=== PATIENT | male | born 1965 | race Caucasian/White ===

== ENCOUNTER 2019-11-03 16:58 | Emergency (ER) | payer BC ==
[~2019-11-03] VITALS: Ht 188 cm; Wt 188.2 kg
[~2019-11-03 16:58] MED LIST: ALEVE220 MG PO; BYSTOLIC10 MG PO; DEPAKOTE250 MG PO; FLUOXETINE HCL20 MG PO; FUROSEMIDE40 MG PO; KEFLEX500 MG PO; LEVOTHYROX200 MCG/VI PO; LEVOTHYROXINE100 MCG PO; LEVOTHYROXINE50 MCG PO; METFORMIN HCL500 MG PO; METOPROLOL TART25 MG PO; NORCO 10MG-325MG1 EA PO; RISPERIDONE0.5 MG PO; ULTRAM 50MG50 MG PO
[2019-11-03] MEDS ORDERED: SODIUM CHLORIDE 0.9% 1000ML 1,000 ML IV STA (17:19)
--- NOTE | 2019-11-03 17:23 | Emergency Department Note ---
History of Present Illnes History of Present Illness Chief Complaint: Abdominal Complaints History of Present Illness This is a 54 year old male presents to the ED for evaluation of GI bleed for 4 weeks which were mild initially but yesterday had increased BRPRB with dizziness. . Onset (how long ago): week(s) Severity: moderate (EMANUEL KATHLEEN DO) Past Medical/Family History Physician Review I have reviewed the patient's past medical and family history. Any updates have been documented here. (EMANUEL KATHLEEN DO) Past Medical History Other Medical History: Broken collar bone. Cracked ribs. Broken wrist. Broken nose. Dislocated knee. pancreatitis sleep apnea pre-diabetic anxiety QUADRIECPT TENDONITIS (EMANUEL KATHLEEN DO) Social History Smoking Cessation: Current some day smoker Counseling Performed: Yes Alcohol Use: None Any Illegal Drug Use: No (KATHLEENEMANUEL GARVEY) Other Last Tetanus: OOD (EMANUEL KATHLEEN DO) Physical Exam Related Data Allergies: Coded Allergies: lamotrigine (Verified Adverse Reaction, Severe, SEVERE DROWISNESS, 01/27/17) quetiapine (Verified Adverse Reaction, Severe, SEVERE DROWISNESS, 01/27/17) Physical Exam CONSTITUTIONAL HENT EYES NECK PULMONARY CARDIOVASCULAR GASTROINTESTINAL GENITOURINARY SKIN MUSCULOSKELETAL NEUROLOGICAL PSYCHOLOGICAL (EMANUEL KATHLEEN DO) Results Laboratory Laboratory Laboratory Tests Test 11/03/19 17:54 White Blood Count 7.93 x10e3/uL (4.8-10.8) Red Blood Count 4.17 x10e6/uL (4.3-5.7) Hemoglobin 13.1 g/dL (14.0-18.0) Hematocrit 37.8 % (38.2-49.6) Mean Corpuscular Volume 90.6 fL (81-99) Mean Corpuscular Hemoglobin 31.4 pg (28-32) Mean Corpuscular Hemoglobin Concent 34.7 g/dL (31-35) Red Cell Distribution Width 12.4 % (11.7-14.4) Platelet Count 247 x10e3/uL (140-360) Neutrophils (%) (Auto) 56.2 % (38.7-80.0) Lymphocytes (%) (Auto) 30.8 % (18.0-39.1) Monocytes (%) (Auto) 8.7 % (4.4-11.3) Eosinophils (%) (Auto) 3.2 % (0.0-6.0) Basophils (%) (Auto) 0.8 % (0.0-1.0) Neutrophils # (Auto) 4.5 (2.1-6.9) Lymphocytes # (Auto) 2.4 (1.0-3.2) Monocytes # (Auto) 0.7 (0.2-0.8) Eosinophils # (Auto) 0.3 (0.0-0.4) Basophils # (Auto) 0.1 (0.0-0.1) Absolute Immature Granulocyte (auto 0.02 x10e3/uL (0-0.1) Prothrombin Time 12.2 seconds (11.9-14.5) Prothromb Time International Ratio 0.86 Sodium Level 131 mmol/L (136-145) Potassium Level 4.1 mmol/L (3.5-5.1) Chloride Level 95 mmol/L (98-107) Carbon Dioxide Level 24 mmol/L (22-29) Anion Gap 16.1 mmol/L (8-16) Blood Urea Nitrogen 12 mg/dL (7-26) Creatinine 1.35 mg/dL (0.72-1.25) Estimat Glomerular Filtration Rate 55 ML/MIN (60-) BUN/Creatinine Ratio 9 (6-25) Glucose Level 385 mg/dL (74-118) Calcium Level 9.4 mg/dL (8.4-10.2) Total Bilirubin 0.6 mg/dL (0.2-1.2) Aspartate Amino Transf (AST/SGOT) 26 IU/L (5-34) Alanine Aminotransferase (ALT/SGPT) 26 IU/L (0-55) Alkaline Phosphatase 82 IU/L (40-150) Creatine Kinase 647 IU/L (30-200) Creatine Kinase MB 6.70 ng/mL (0-5.0) Troponin I 0.005 ng/mL (0-0.300) Total Protein 7.5 g/dL (6.5-8.1) Albumin 4.8 g/dL (3.5-5.0) Globulin 2.7 g/dL (2.3-3.5) Albumin/Globulin Ratio 1.8 (0.8-2.0) Lipase 36 U/L (8-78) Lab results reviewed: Yes (JUAN LUIS CRISOSTOMO MD) Imaging Imaging results reviewed: Yes Impressions Procedure: [id number] CT/CTA ABD/PELVIS Exam Date: 11/03/19 Exam Time: 1830 REPORT STATUS: Signed EXAMINATION: CTA of the abdomen and pelvis with and without contrast. TECHNIQUE: Spiral CT images of the abdomen and pelvis were performed from the lung bases to the lesser trochanters before and after the intravenous administration of 100 cc of Isovue 370 and the oral administration of water. Precontrast, arterial and delayed axial images were obtained. Coronal and sagittal reformatted images were performed. COMPARISON: None. CLINICAL HISTORY:Lower GI bleed, bright red blood rectum. DISCUSSION: Exam limited by photon starvation secondary to patient's large body habitus ABDOMEN/PELVIS: LOWER THORAX:Minimal linear opacities in the lateral left lower lobe, likely reflect subsegmental atelectasis or scarring. Lung bases are otherwise clear. HEPATOBILIARY: Diffuse decreased attenuation of the hepatic parenchyma consistent with steatosis.. No intra or extrahepatic biliary ductal dilation. GALLBLADDER: No radio-opaque stones or sludge. No wall thickening. SPLEEN: No splenomegaly. PANCREAS: No focal masses or ductal dilatation. ADRENALS: No adrenal nodules. KIDNEYS/URETERS: No hydronephrosis, stones, or solid mass lesions. PELVIC ORGANS/BLADDER: Prostate are unremarkable. Pelvic phleboliths. PERITONEUM/RETROPERITONEUM: No free air or fluid. LYMPH NODES: No intra-abdominal,retroperitoneal, pelvic or inguinal lymphadenopathy. VESSELS: The celiac trunk,superior and inferior mesenteric and bilateral renal arteries are patent The portal, superior mesenteric and splenic veins are patent. Aorta is nonaneurysmal. No dissection is identified. Bilateral common, external and internal iliac arteries are patent. GI TRACT: No bowel dilation or evidence of obstruction. No pericolonic inflammatory changes. No wall thickening or focal intraluminal mass. Specifically, no intraluminal hyperdensity to suggest acute bleeding. No evidence of contrast extravasation in the bowel. No surrounding fat stranding/inflammatory changes in the distal sigmoid or rectum. BONES AND SOFT TISSUE: No aggressive lytic or suspicious focal sclerotic lesions. Multilevel degenerative discs in the lumbosacral spine, worse at L5-S1. Facet hypertrophy at L5-S1. This visualized soft tissues are grossly unremarkable. IMPRESSION: 1. No bowel dilation, obstruction, wall thickening or focal intraluminal mass. Specifically, no intraluminal hyperdensity to suggest acute bleeding in the distal bowel. No contrast extravasation. 2. Diffuse hepatic steatosis. Signed by: Dr. Zak Olivia M.D. on 11/03/2019 9:12 PM Dictated By: ZAK OLIVIA MD 11 Transcribed By: GISEL on 11/03/192111 COPY TO: EMANUEL KATHLEEN DO~ (JUAN LUIS CRISOSTOMO MD) Procedures 12 Lead ECG Interpretation ECG Interpretation : ECG: ECG 1 [employer]: Interpreted by ED physician Date: Nov 03, 2019 Time: 19:39 Rhythm: sinus rhythm Rate: normal BPM: 74 QRS axis: normal ST segments normal: Yes T waves normal: Yes Other findings: no other findings Clinical Impression: normal ECG (JUAN LUIS CRISOSTOMO MD) Assessment & Plan Medical Decision Making MDM I SPOKE WITH DR RICHMOND, DISCHARGE HOME, FOLLOW UP IN OFFICE (JUAN LUIS CRISOSTOMO MD) Reassessment Reassessment time: 21:27 Reassessment PT DOING WELL RECTAL EXAM REVEALS EXTERNAL AND INTERNAL HEMORRHOIDS (JUAN LUIS CRISOSTOMO MD) Assessment & Plan Final Impression: (1) Internal hemorrhoid, bleeding (JUAN LUIS CRISOSTOMO MD) Depart Disposition: HOME, SELF-assisted Meds Reported Medications Naproxen Sodium (ALEVE) 220 Mg Tablet, 200 MG PO TID 01/27/17 Furosemide (FUROSEMIDE) 40 Mg Tablet, 20 MG PO Daily, #30 TAB 01/27/17 Metformin Hcl (METFORMIN HCL) 500 Mg Tablet, 500 MG PO ACS, #60 TAB 01/27/17 Levothyroxine Sodium (LEVOTHYROXINE SODIUM) 100 Mcg Tablet, 200 MCG PO DAILY 06/22/14 Risperidone (RISPERIDONE) 0.5 Mg Tablet, 0.5 MG PO HS, TAB 06/22/14 Fluoxetine Hcl (FLUOXETINE HCL) 20 Mg Capsule, 40 MG PO DAILY, #30 CAP 06/22/14 Metoprolol Tartrate (METOPROLOL TARTRATE) 25 Mg Tablet, 25 MG PO BID, TAB 06/22/14 EMANUEL KATHLEEN DO Nov 03, 2019 17:23 JUAN LUIS CRISOSTOMO MD Nov 03, 2019 19:52
[2019-11-03 18:16] LABS: BASOPHILS # (AUTO) 0.1 (0.0-0.1); BASOPHILS % 0.8 % (0.0-1.0); EOSINOPHILS # (AUTO) 0.3 (0.0-0.4); EOSINOPHILS % 3.2 % (0.0-6.0); HEMATOCRIT 37.8 % (38.2-49.6); HEMOGLOBIN 13.1 g/dL (14.0-18.0); LYMPHOCYTES # (AUTO) 2.4 (1.0-3.2); LYMPHOCYTES % 30.8 % (18.0-39.1); MEAN CORPUSCULAR HEMOGLOBIN 31.4 pg (28-32); MEAN CORPUSCULAR HGB CONC 34.7 g/dL (31-35); MEAN CORPUSCULAR VOLUME 90.6 fL (81-99); MONOCYTES # (AUTO) 0.7 (0.2-0.8); MONOCYTES % 8.7 % (4.4-11.3); NEUTROPHILS # (AUTO) 4.5 (2.1-6.9); NEUTROPHILS % 56.2 % (38.7-80.0); PLATELET COUNT 247 x10e3/uL (140-360); RED BLOOD COUNT 4.17 x10e6/uL (4.3-5.7); RED CELL DISTRIBUTION WIDTH 12.4 % (11.7-14.4)
[2019-11-03 18:29] LABS: INR 0.86; PROTHROMBIN TIME 12.2 seconds (11.9-14.5)
[2019-11-03 18:36] LABS: ALBUMIN 4.8 g/dL (3.5-5.0); ALBUMIN/GLOBULIN RATIO 1.8 (0.8-2.0); ANION GAP 16.1 mmol/L (8-16); CALCIUM 9.4 mg/dL (8.4-10.2); CREATININE, SERUM 1.35 mg/dL (0.72-1.25); POTASSIUM 4.1 mmol/L (3.5-5.1)
[2019-11-03 18:43] LABS: CREATINE KINASE MB 6.7 ng/mL (0-5.0)
[2019-11-03] MEDS ORDERED: SODIUM CHLORIDE 0.9% 50ML 50 ML ONE (18:52)
[2019-11-03] MEDS ORDERED: IOPAMIDOL 370 MG/ML 200 ML INFUS..BTL INJ ONE (18:53)
--- NOTE | 2019-11-03 21:15 | Diagnostic Imaging Report ---
EXAMINATION: CTA of the abdomen and pelvis with and without contrast. TECHNIQUE: Spiral CT images of the abdomen and pelvis were performed from the lung bases to the lesser trochanters before and after the intravenous administration of 100 cc of Isovue 370 and the oral administration of water. Precontrast, arterial and delayed axial images were obtained. Coronal and sagittal reformatted images were performed. COMPARISON: None. CLINICAL HISTORY:Lower GI bleed, bright red blood rectum. DISCUSSION: Exam limited by photon starvation secondary to patient's large body habitus ABDOMEN/PELVIS: LOWER THORAX:Minimal linear opacities in the lateral left lower lobe, likely reflect subsegmental atelectasis or scarring. Lung bases are otherwise clear. HEPATOBILIARY: Diffuse decreased attenuation of the hepatic parenchyma consistent with steatosis.. No intra or extrahepatic biliary ductal dilation. GALLBLADDER: No radio-opaque stones or sludge. No wall thickening. SPLEEN: No splenomegaly. PANCREAS: No focal masses or ductal dilatation. ADRENALS: No adrenal nodules. KIDNEYS/URETERS: No hydronephrosis, stones, or solid mass lesions. PELVIC ORGANS/BLADDER: Prostate are unremarkable. Pelvic phleboliths. PERITONEUM/RETROPERITONEUM: No free air or fluid. LYMPH NODES: No intra-abdominal,retroperitoneal, pelvic or inguinal lymphadenopathy. VESSELS: The celiac trunk,superior and inferior mesenteric and bilateral renal arteries are patent The portal, superior mesenteric and splenic veins are patent. Aorta is nonaneurysmal. No dissection is identified. Bilateral common, external and internal iliac arteries are patent. GI TRACT: No bowel dilation or evidence of obstruction. No pericolonic inflammatory changes. No wall thickening or focal intraluminal mass. Specifically, no intraluminal hyperdensity to suggest acute bleeding. No evidence of contrast extravasation in the bowel. No surrounding fat stranding/inflammatory changes in the distal sigmoid or rectum. BONES AND SOFT TISSUE: No aggressive lytic or suspicious focal sclerotic lesions. Multilevel degenerative discs in the lumbosacral spine, worse at L5-S1. Facet hypertrophy at L5-S1. This visualized soft tissues are grossly unremarkable. IMPRESSION: 1. No bowel dilation, obstruction, wall thickening or focal intraluminal mass. Specifically, no intraluminal hyperdensity to suggest acute bleeding in the distal bowel. No contrast extravasation. 2. Diffuse hepatic steatosis. Signed by: Dr. Kolton Olivia M.D. on 11/03/2019 9:12 PM
[2019-11-03 21:44] VITALS: BP 121/64
[2019-11-05] MEDS ORDERED: BUPROPION HCL75 MG PO (10:36)
[2019-11-05] MEDS ORDERED: LEXAPRO5 MG PO (10:36)
[2019-11-05] MEDS ORDERED: LOSARTAN POTASS25 MG PO (10:36)
[2019-11-05] MEDS ORDERED: DEPAKOTE250 MG PO (10:36)
== END 2019-11-03 21:56 | disposition home or self-care (01) ==
LOC: ER 17:26
DX: K62.5 Hemorrhage of anus and rectum (principal); K64.8 Other hemorrhoids; R42 Dizziness and giddiness; K76.0 Fatty (change of) liver, not elsewhere classified; F41.9 Anxiety disorder, unspecified
CPT/HCPCS: 36415; 74174; 80053; 82550; 82553; 83690; 84484; 85025; 85610; 93005; 99284; J7030; Q9967; U0002

== ENCOUNTER → 2019-11-06 | Day surgery (SDC) | payer BC ==
[~2019-11-06] MED LIST changes: +BUPROPION HCL75 MG PO; +INSULIN REGULAR, HUMAN 100 UNIT/1 ML 3ML VIAL ONE; +LEXAPRO5 MG PO; +LIDOCAINE HCL 2% LOCAL INJ 5 ML SDV VIAL INJ ONE; +LOSARTAN POTASS25 MG PO; +MIDAZOLAM HCL 2 MG/2 ML VIAL ONE; +PROPOFOL IV EMULSION 10 MG/ML 20 ML VIAL ONE
[2019-11-06 08:45] VITALS: BP 114/64
== END | disposition home or self-care (01) ==
LOC: OR 05:52
PROVIDERS: ATTEND Internal Medicine Gastroenterology
DX: Z12.11 Encounter for screening for malignant neoplasm of colon (principal); Z86.010 Personal history of colon polyps; K29.50 Unspecified chronic gastritis without bleeding; K44.9 Diaphragmatic hernia without obstruction or gangrene; K21.0 Gastro-esophageal reflux disease with esophagitis; K57.30 Diverticulosis of large intestine without perforation or abscess without bleeding; K64.3 Fourth degree hemorrhoids; Z71.3 Dietary counseling and surveillance; G47.33 Obstructive sleep apnea (adult) (pediatric); I10 Essential (primary) hypertension; E66.01 Morbid (severe) obesity due to excess calories; E11.9 Type 2 diabetes mellitus without complications; E03.9 Hypothyroidism, unspecified; F41.9 Anxiety disorder, unspecified; F17.200 Nicotine dependence, unspecified, uncomplicated; Z88.8 Allergy status to other drugs, medicaments and biological substances; Z79.84 Long term (current) use of oral hypoglycemic drugs; Z68.43 Body mass index [BMI] 50.0-59.9, adult
CPT/HCPCS: 36415; 43239; 45378; 82948; J2001; J2704; J1817; J2250

== ENCOUNTER → 2021-02-03 | Outpatient (CLI) | payer BC ==
[~2021-02-03] MED LIST changes: -INSULIN REGULAR, HUMAN 100 UNIT/1 ML 3ML VIAL ONE; -LIDOCAINE HCL 2% LOCAL INJ 5 ML SDV VIAL INJ ONE; -MIDAZOLAM HCL 2 MG/2 ML VIAL ONE; -PROPOFOL IV EMULSION 10 MG/ML 20 ML VIAL ONE
== END ==
LOC: CARD 11:27
PROVIDERS: ATTEND Family Medicine
DX: R42 Dizziness and giddiness (principal)
CPT/HCPCS: 70450; 93306; 93880